=== PATIENT | male | born 2005 | race Caucasian/White ===

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

== ENCOUNTER 2024-08-12 16:38 | Emergency (ER) | payer MEDICAID ==
[~2024-08-12] VITALS: Ht 180.3 cm; Wt 83.9 kg
[2024-08-12 17:04] VITALS: O2SAT 99
== END 2024-08-12 19:06 | disposition left against medical advice (07) ==
LOC: ER 16:38
DX: Z53.21 Procedure and treatment not carried out due to patient leaving prior to being seen by health care provider (principal); R31.9 Hematuria, unspecified
CPT/HCPCS: A4606; A4663